=== PATIENT | female | born 1950 | race Hispanic/Latino ===

== ENCOUNTER 2017-06-09 03:00 | Emergency (ER) | payer MEDICARE ==
[2017-06-09] MEDS ORDERED: NACL 0.9% 1000 ML 1,000 ML IV ONE ×2 (03:51→13:44)
[2017-06-09 04:29] LABS: Basophils % (Auto) 0.7 % (0.0-1.8); Hematocrit 39.6 % (30.3-42.9); Hemoglobin 12.8 gm/dl (10.1-14.3); Mean Corpuscular HGB Conc 32 % (30-34); Mean Corpuscular Hemoglobin 28 pg (28-32); Mean Corpuscular Volume 87 fl (79-97); Platelet Count 262 K/mm3 (140-440); Red Blood Count 4.54 M/mm3 (3.65-5.03); Red Cell Distribution Width 15.1 % (13.2-15.2); White Blood Count 10.5 K/mm3 (4.5-11.0)
[2017-06-09 04:40] LABS: INR 0.94 (0.87-1.13); Partial Thromboplastin Time 27.1 Sec. (24.2-36.6)
[2017-06-09 04:54] LABS: Alanine Aminotransferase 14 units/L (7-56); Albumin 3.6 g/dL (3.9-5); Albumin/Globulin Ratio 1.1 %; Alkaline Phosphatase 79 units/L (35-129); Anion Gap 19 mmol/L; Bilirubin,Total < 0.20 mg/dL (0.1-1.2); Blood Urea Nitrogen 42 mg/dL (7-17); Calcium 8.7 mg/dL (8.4-10.2); Carbon Dioxide 25 mmol/L (22-30); Chloride 103.3 mmol/L (98-107); Glucose 109 mg/dL (65-100); Lipase 37 units/L (13-60); Potassium 4.6 mmol/L (3.6-5.0); Sodium 143 mmol/L (137-145); Total Protein 6.8 g/dL (6.3-8.2)
[2017-06-09] MEDS ORDERED: NACL 0.9% 500 ML 500 ML IV ONE (13:44)
--- NOTE | 2017-06-09 14:31 | Emergency Department Report ---
ED General Adult HPI - General Chief complaint: GI Bleed Stated complaint: BLEEDING FROM STOMA Time Seen by Provider: 06/09/17 13:15 Source: patient, family Mode of arrival: Ambulatory Limitations: No Limitations - History of Present Illness Initial comments: Patient states that she has been passing red streaks for the last week. She did not call her colectomy surgeon. She states that she does go to a wound care clinic once a month but otherwise her stresses her open granulating wound from prior colectomy surgery. She has not been vomiting. She states that she had a large bowel movement and subsequent to that she started passing red streaked stools. She brought a sample. I saw no indications of melena but some red streaks only. She states that she had a colonoscopy 7 months ago for similar problem and "nothing was found". She states that she does not go to a GI doctor. Her idea in coming to the emergency department this date was actually that a CT scan would show what was bleeding even though the colonoscopy showed nothing. -: Gradual, week(s) Radiation: periumbillical ([place] like a menstrual cramp) Quality: other Consistency: now resolved Improves with: none Associated Symptoms: denies other symptoms Treatments Prior to Arrival: none - Related Data Home Medications Medication Instructions Recorded Confirmed Last Taken Ambien 10 mg PO HS 06/09/17 06/09/17 Unknown AtorvaSTATin [Lipitor] 1 tab PO HS 06/09/17 06/09/17 Unknown Citalopram [Celexa] 40 mg PO DAILY 06/09/17 06/09/17 Unknown Hydroxychloroquine [Plaquenil] 1 tab PO BID 06/09/17 06/09/17 Unknown Lisinopril 20 mg PO DAILY 06/09/17 06/09/17 Unknown Tizanidine HCl [Zanaflex] 2 mg PO DAILY 06/09/17 06/09/17 Unknown predniSONE 10 mg PO DAILY 06/09/17 06/09/17 Unknown Previous Rx's Medication Instructions Recorded Last Taken Type Lansoprazole [Prevacid] 15 mg PO BID #60 cap 06/09/17 Unknown Rx Lisinopril [Zestril TAB] 10 mg PO QDAY #30 tablet 06/09/17 Unknown Rx Allergies Allergy/AdvReac Type Severity Reaction Status Date / Time orava Allergy Hives Uncoded 06/09/17 03:50 ED Review of Systems ROS: Stated complaint: BLEEDING FROM STOMA Other details as noted in HPI Constitutional: denies: chills, fever Eyes: denies: eye pain, eye discharge, vision change ENT: denies: ear pain, throat pain Respiratory: denies: cough, shortness of breath, wheezing Cardiovascular: denies: chest pain, palpitations Endocrine: no symptoms reported Gastrointestinal: as per HPI, abdominal pain, hematochezia. denies: nausea, diarrhea Genitourinary: denies: urgency, dysuria, discharge Musculoskeletal: denies: back pain, joint swelling, arthralgia Skin: denies: rash, lesions Neurological: denies: headache, weakness, paresthesias Psychiatric: denies: anxiety, depression Hematological/Lymphatic: denies: easy bleeding, easy bruising ED Past Medical Hx - Past Medical History Hx Hypertension: Yes Hx Arthritis: Yes (RA) Additional medical history: Abdominal hernia, DJD, Fibromyalgia, Chronic pain - Surgical History Additional Surgical History: Perforated Bowel, Colostomy, Chronic abdominal Wound, Hysterectomy, - Social History Smoking Status: Never Smoker Substance Use Type: None - Medications Home Medications: Home Medications Medication Instructions Recorded Confirmed Last Taken Type Ambien 10 mg PO HS 06/09/17 06/09/17 Unknown History AtorvaSTATin [Lipitor] 1 tab PO HS 06/09/17 06/09/17 Unknown History Citalopram [Celexa] 40 mg PO DAILY 06/09/17 06/09/17 Unknown History Hydroxychloroquine [Plaquenil] 1 tab PO BID 06/09/17 06/09/17 Unknown History Lansoprazole [Prevacid] 15 mg PO BID #60 cap 06/09/17 Unknown Rx Lisinopril 20 mg PO DAILY 06/09/17 06/09/17 Unknown History Lisinopril [Zestril TAB] 10 mg PO QDAY #30 tablet 06/09/17 Unknown Rx Tizanidine HCl [Zanaflex] 2 mg PO DAILY 06/09/17 06/09/17 Unknown History predniSONE 10 mg PO DAILY 06/09/17 06/09/17 Unknown History ED Physical Exam - General Limitations: No Limitations General appearance: alert, in no apparent distress - Head Head exam: Present: atraumatic, normocephalic - Eye Eye exam: Present: normal appearance - ENT ENT exam: Present: mucous membranes moist - Neck Neck exam: Present: normal inspection - Respiratory Respiratory exam: Present: normal lung sounds bilaterally. Absent: respiratory distress - Cardiovascular Cardiovascular Exam: Present: regular rate, normal rhythm. Absent: systolic murmur, diastolic murmur, rubs, gallop - GI/Abdominal GI/Abdominal exam: Present: soft, normal bowel sounds, mass (large granulating wound without sign of infection abdominal wall, colostomy without signs of significant bleeding). Absent: distended, tenderness, guarding, rebound, rigid - Extremities Exam Extremities exam: Present: normal inspection - Back Exam Back exam: Present: normal inspection - Neurological Exam Neurological exam: Present: alert, oriented X3 - Psychiatric Psychiatric exam: Present: normal affect, normal mood - Skin Skin exam: Present: warm, dry, intact, normal color. Absent: rash ED Course Vital Signs 06/09/17 06/09/17 06/09/17 03:09 12:19 13:00 Temperature 98.1 F Pulse Rate 60 89 Respiratory 18 18 18 Rate Blood Pressure 110/53 Blood Pressure 125/60 132/65 [Left] O2 Sat by Pulse 97 99 Oximetry - Reevaluation(s) Reevaluation #1: Patient was given IV fluids and consideration of her prerenal azotemia. She is not taking a diuretic. Further evaluation of this is advised. I'm assuming it was secondary to GI losses and poor oral intake. Patient is currently on prednisone. She does not take an NSAID. She will be given a prescription for lansoprazole and a referral to GI. ED Medical Decision Making - Lab Data Result diagrams: 06/09/17 04:06 06/09/17 04:06 Laboratory Results - last 24 hr 06/09/17 06/09/17 06/09/17 04:06 04:06 04:06 WBC 10.5 RBC 4.54 Hgb 12.8 Hct 39.6 MCV 87 MCH 28 MCHC 32 RDW 15.1 Plt Count 262 Lymph % (Auto) 13.8 Harmon % (Auto) 5.6 Eos % (Auto) 1.0 Baso % (Auto) 0.7 Lymph # 1.5 Harmon # 0.6 Eos # 0.1 Baso # 0.1 Seg Neutrophils % 78.9 H Seg Neutrophils # 8.3 H PT 12.5 INR 0.94 APTT 27.1 Sodium 143 Potassium 4.6 Chloride 103.3 Carbon Dioxide 25 Anion Gap 19 BUN 42 H Creatinine 1.7 H Estimated GFR 30 BUN/Creatinine Ratio 24.70 Glucose 109 H Calcium 8.7 Total Bilirubin < 0.20 AST 14 ALT 14 Alkaline Phosphatase 79 Total Protein 6.8 Albumin 3.6 L Albumin/Globulin Ratio 1.1 Lipase 37 Blood Type Antibody Screen 06/09/17 04:06 WBC RBC Hgb Hct MCV MCH MCHC RDW Plt Count Lymph % (Auto) Harmon % (Auto) Eos % (Auto) Baso % (Auto) Lymph # Harmon # Eos # Baso # Seg Neutrophils % Seg Neutrophils # PT INR APTT Sodium Potassium Chloride Carbon Dioxide Anion Gap BUN Creatinine Estimated GFR BUN/Creatinine Ratio Glucose Calcium Total Bilirubin AST ALT Alkaline Phosphatase Total Protein Albumin Albumin/Globulin Ratio Lipase Blood Type A POSITIVE Antibody Screen Negative Critical care attestation.: If time is entered above; I have spent that time in minutes in the direct care of this critically ill patient, excluding procedure time. ED Disposition Clinical Impression: Status post colostomy, Prerenal azotemia, Renal insufficiency GI bleeding Qualifiers: GI bleed type/associated pathology: unspecified gastrointestinal hemorrhage type Qualified Code(s): K92.2 - Gastrointestinal hemorrhage, unspecified Disposition: DC-01 TO HOME OR SELFCARE Is pt being admited?: No Does the pt Need Aspirin: No Condition: Stable Instructions: Impaired Kidney Function (ED), Dehydration (ED), Gastrointestinal Bleeding (ED) Additional Instructions: I would recommend that you take half a 20 mg lisinopril (10 mg instead of the 20 ) or the prescription I am going to give you for 10 mg tablets. Your kidney function needs to be rechecked this week with your primary care provider. I am also going to give you a medicine to lower your stomach acid. I would recommend evaluation by a GI doctor. Continue with wound clinic as well. Return if any fever vomiting or any acute change. Prescriptions: Lansoprazole [Prevacid] 15 mg PO BID #60 cap Lisinopril [Zestril TAB] 10 mg PO QDAY #30 tablet Referrals: CASI GARCIA MD [Primary Care Provider] - 2-3 Days [facility] [Provider Group] - 24 Hours Forms: Accompanied Note Time of Disposition: 14:48
[2017-06-09 14:56] VITALS: BP 125/70
== END 2017-06-09 15:48 | disposition home or self-care (01) ==
LOC: ED 03:00
DX: K92.2 Gastrointestinal hemorrhage, unspecified (principal); R79.89 Other specified abnormal findings of blood chemistry; N28.9 Disorder of kidney and ureter, unspecified; I10 Essential (primary) hypertension
CPT/HCPCS: 36415; 80053; 83690; 85025; 85610; 85730; 86850; 86900; 86901; 93005; 93010; 96360; 96361; 99284; J7030

== ENCOUNTER 2018-01-08 13:10 | Outpatient (CLI) | payer MEDICARE ==
[2018-01-08] MEDS ORDERED: XYLOCAINE TOPICAL 4% TP ONE (13:52)
== END 2018-01-08 13:11 | disposition home or self-care (01) ==
LOC: WOUND 13:10
PROVIDERS: ATTEND Surgery
DX: T81.89XA Other complications of procedures, not elsewhere classified, initial encounter (principal); K43.2 Incisional hernia without obstruction or gangrene; M05.6 Rheumatoid arthritis with involvement of other organs and systems; Z98.49 Cataract extraction status, unspecified eye; Z87.891 Personal history of nicotine dependence; X58.XXXA Exposure to other specified factors, initial encounter; Y93.89 Activity, other specified; Y92.89 Other specified places as the place of occurrence of the external cause; Y99.8 Other external cause status
CPT/HCPCS: 99215; G0463

== ENCOUNTER 2018-06-24 02:05 | Emergency (ER) | payer MEDICARE ==
[2018-06-24 02:41] VITALS: BP 147/72
[2018-06-24] MEDS ORDERED: PEPCID IV ONE (03:04)
[2018-06-24] MEDS ORDERED: BENADRYL PO ONE (03:04)
[2018-06-24] MEDS ORDERED: DECADRON IV ONE (03:04)
--- NOTE | 2018-06-24 03:10 | Emergency Department Report ---
ED General Adult HPI - General Chief complaint: Skin Rash Stated complaint: RASH Time Seen by Provider: 06/24/18 02:58 Source: patient Mode of arrival: Ambulatory Limitations: Physical Limitation - History of Present Illness Initial comments: Patient is 68-year-old female who presents for evaluation itch and burning no shortness of breath no wheezing no chest pain no shortness of breath history for same last week treated with prednisone Dosepak states symptoms returned as soon as medicine was completed Onset/Timin -: week(s) Radiation: non-radiation Severity scale (0 -10): 4 Quality: burning, other (itching ) Consistency: constant Improves with: none Worsens with: none Associated Symptoms: rash - Related Data Home Medications Medication Instructions Recorded Confirmed Last Taken Ambien 10 mg PO HS 06/09/17 06/09/17 Unknown AtorvaSTATin [Lipitor] 1 tab PO HS 06/09/17 06/09/17 Unknown Citalopram [Celexa] 40 mg PO DAILY 06/09/17 06/09/17 Unknown Hydroxychloroquine [Plaquenil] 1 tab PO BID 06/09/17 06/09/17 Unknown Lisinopril 20 mg PO DAILY 06/09/17 06/09/17 Unknown Tizanidine HCl [Zanaflex] 2 mg PO DAILY 06/09/17 06/09/17 Unknown predniSONE 10 mg PO DAILY 06/09/17 06/09/17 Unknown Previous Rx's Medication Instructions Recorded Last Taken Type Lansoprazole [Prevacid] 15 mg PO BID #60 cap 06/09/17 Unknown Rx Lisinopril [Zestril TAB] 10 mg PO QDAY #30 tablet 06/09/17 Unknown Rx diphenhydrAMINE [Benadryl CAP] 50 mg PO Q12H PRN #20 capsule 05/23/18 Unknown Rx hydrOXYzine HCL [Atarax] 25 mg PO Q6HR PRN #20 tablet 05/23/18 Unknown Rx methylPREDNISolone [Medrol Dose 4 mg PO QAM 6 Days #1 pack 05/23/18 Unknown Rx Kal] Dexamethasone [Decadron] 4 mg PO Q12H 3 Days #6 tablet 06/24/18 Unknown Rx Diphenhydramine HCl/Zinc Acet 1 applicatio TP TID PRN 14 Days #1 06/24/18 Unknown Rx [Benadryl Itch Stopping Crm] tube Metoclopramide [Reglan] 10 mg PO 10 PRN #30 tab 06/24/18 Unknown Rx diphenhydrAMINE [Benadryl CAP] 25 mg PO Q6HR PRN #30 capsule 06/24/18 Unknown Rx Allergies Allergy/AdvReac Type Severity Reaction Status Date / Time orava Allergy Hives Uncoded 06/09/17 03:50 ED Review of Systems ROS: Stated complaint: RASH Other details as noted in HPI Constitutional: denies: chills, fever Eyes: denies: eye pain, eye discharge, vision change ENT: denies: ear pain, throat pain Respiratory: denies: cough, shortness of breath, wheezing Cardiovascular: denies: chest pain, palpitations Endocrine: no symptoms reported Gastrointestinal: denies: abdominal pain, nausea, diarrhea Genitourinary: denies: urgency, dysuria, discharge Musculoskeletal: denies: back pain, joint swelling, arthralgia Skin: pruritus, other (burning ) Neurological: denies: headache, weakness, paresthesias Psychiatric: denies: anxiety, depression Hematological/Lymphatic: denies: easy bleeding, easy bruising ED Past Medical Hx - Past Medical History Previous Medical History?: Yes Hx Hypertension: Yes Hx Arthritis: Yes (RA) Hx Seizures: Yes Additional medical history: Abdominal hernia, DJD, Fibromyalgia, Chronic pain - Surgical History Past Surgical History?: Yes Additional Surgical History: Perforated Bowel, Colostomy, Chronic abdominal Wound, Hysterectomy, - Social History Smoking Status: Former Smoker Substance Use Type: None - Medications Home Medications: Home Medications Medication Instructions Recorded Confirmed Last Taken Type Ambien 10 mg PO HS 06/09/17 06/09/17 Unknown History AtorvaSTATin [Lipitor] 1 tab PO HS 06/09/17 06/09/17 Unknown History Citalopram [Celexa] 40 mg PO DAILY 06/09/17 06/09/17 Unknown History Hydroxychloroquine [Plaquenil] 1 tab PO BID 06/09/17 06/09/17 Unknown History Lansoprazole [Prevacid] 15 mg PO BID #60 cap 06/09/17 Unknown Rx Lisinopril 20 mg PO DAILY 06/09/17 06/09/17 Unknown History Lisinopril [Zestril TAB] 10 mg PO QDAY #30 tablet 06/09/17 Unknown Rx Tizanidine HCl [Zanaflex] 2 mg PO DAILY 06/09/17 06/09/17 Unknown History predniSONE 10 mg PO DAILY 06/09/17 06/09/17 Unknown History diphenhydrAMINE [Benadryl CAP] 50 mg PO Q12H PRN #20 capsule 05/23/18 Unknown Rx hydrOXYzine HCL [Atarax] 25 mg PO Q6HR PRN #20 tablet 05/23/18 Unknown Rx methylPREDNISolone [Medrol Dose 4 mg PO QAM 6 Days #1 pack 05/23/18 Unknown Rx Kal] Dexamethasone [Decadron] 4 mg PO Q12H 3 Days #6 tablet 06/24/18 Unknown Rx Diphenhydramine HCl/Zinc Acet 1 applicatio TP TID PRN 14 Days #1 06/24/18 Unknown Rx [Benadryl Itch Stopping Crm] tube Metoclopramide [Reglan] 10 mg PO 10 PRN #30 tab 06/24/18 Unknown Rx diphenhydrAMINE [Benadryl CAP] 25 mg PO Q6HR PRN #30 capsule 06/24/18 Unknown Rx ED Physical Exam - General Limitations: Physical Limitation General appearance: alert, in no apparent distress - Head Head exam: Present: atraumatic, normocephalic, normal inspection - Eye Eye exam: Present: normal appearance, PERRL, EOMI Pupils: Present: normal accommodation - ENT ENT exam: Present: normal orophraynx, mucous membranes moist, TM's normal bilaterally, normal external ear exam - Neck Neck exam: Present: normal inspection. Absent: tenderness, meningismus, full ROM, lymphadenopathy, thyromegaly - Respiratory Respiratory exam: Present: normal lung sounds bilaterally. Absent: respiratory distress, wheezes, stridor, chest wall tenderness - Cardiovascular Cardiovascular Exam: Present: regular rate, normal rhythm. Absent: systolic murmur, diastolic murmur, rubs, gallop - GI/Abdominal GI/Abdominal exam: Present: soft, normal bowel sounds, other (chronic abd wound dressing intact, ) - Rectal Rectal exam: Present: deferred - Extremities Exam Extremities exam: Present: normal inspection - Back Exam Back exam: Present: normal inspection - Neurological Exam Neurological exam: Present: alert, oriented X3 - Psychiatric Psychiatric exam: Present: normal affect, normal mood, anxious - Skin Skin exam: Present: warm, dry, intact, normal color, rash (rough flat no fever not hot to touch no weeping. ), erythema. Absent: cyanosis, diaphoretic, urticaria, vesicles, abrasion, ecchymosis ED Course Vital Signs 06/24/18 02:34 Temperature 98.8 F Pulse Rate 68 Blood Pressure 147/72 O2 Sat by Pulse 97 Oximetry ED Medical Decision Making - Medical Decision Making Patient presents for persistent rash with mild erythema, no drainage no fever no chills no sob no wheezing Critical care attestation.: If time is entered above; I have spent that time in minutes in the direct care of this critically ill patient, excluding procedure time. ED Disposition Clinical Impression: Contact dermatitis Qualifiers: Contact dermatitis type: irritant Contact dermatitis trigger: cosmetics Qualified Code(s): L24.3 - Irritant contact dermatitis due to cosmetics Disposition: DC-01 TO HOME OR SELFCARE Is pt being admited?: No Does the pt Need Aspirin: No Condition: Good Instructions: Contact Dermatitis (ED) Prescriptions: Dexamethasone [Decadron] 4 mg PO Q12H 3 Days #6 tablet diphenhydrAMINE [Benadryl CAP] 25 mg PO Q6HR PRN #30 capsule PRN Reason: Itching Diphenhydramine HCl/Zinc Acet [Benadryl Itch Stopping Crm] 1 applicatio TP TID PRN 14 Days #1 tube PRN Reason: itching Metoclopramide [Reglan] 10 mg PO 10 PRN #30 tab PRN Reason: allergies Referrals: PRIMARY CARE,MD [Primary Care Provider] - 3-5 Days Forms: AMA Form, Work/School Release Form(ED) Time of Disposition: 03:50
== END 2018-06-24 04:00 | disposition home or self-care (01) ==
LOC: ED 02:05
DX: L24.3 Irritant contact dermatitis due to cosmetics (principal); I10 Essential (primary) hypertension; M19.90 Unspecified osteoarthritis, unspecified site; G89.29 Other chronic pain; Z90.710 Acquired absence of both cervix and uterus; Z87.891 Personal history of nicotine dependence; Z91.048 Other nonmedicinal substance allergy status
CPT/HCPCS: 96374; 96375; 99282; J1100